=== PATIENT | male | born 1965 | race Caucasian/White ===

== ENCOUNTER → 2023-10-18 | Outpatient (CLI) | payer SELFPAY, OTHER ==
[2023-10-18] MEDS: Methacholine Chloride 18 ml neb kit INHALATION (07:06)
[2023-10-18 08:01] VITALS: PULSE 64; PULSE 74; PULSE 77; PULSE 78; PULSE 80; O2SAT 95; O2SAT 96; O2SAT 97
--- NOTE | 2023-10-19 11:00 | PCM.PSN.6M ---
PSN 6 Minute Walk Test 6 Minute Walk Test 6 Minute Walk Test: 6 Minute Walk Test PSN:6-Minute Walk Test Start: 10/18/23 07:38 Freq: Status: Active Protocol: [id number].[id number] Document 10/18/23 08:01 DEVON (Rec: 10/18/23 08:03 DEVON [id number]) 6 Minute Walk Test Date Performed 10/18/23 Time Performed 08:00 Height 5 ft 9.5 in Weight: 210 lb Weight in Pounds 210.[address]: Sekou Lara Assistive device used: None Pre-test Oxygen Delivery Method Room Air Pulse Ox 95 Pulse Rate (60-100) 74 Dyspnea Sohan Scale (0-10) 0 Exertion Sohan Scale (6-20) 6 1st minute Oxygen Delivery Method Room Air Pulse Ox 97 Pulse Rate (60-100) 78 2nd minute Oxygen Delivery Method Room Air Pulse Ox 96 Pulse Rate (60-100) 80 3rd minute Oxygen Delivery Method Room Air Pulse Ox 97 Pulse Rate (60-100) 80 4th minute Oxygen Delivery Method Room Air Pulse Ox 97 Pulse Rate (60-100) 78 5th minute Oxygen Delivery Method Room Air Pulse Ox 97 Pulse Rate (60-100) 77 6th minute Oxygen Delivery Method Room Air Pulse Ox 97 Pulse Rate (60-100) 80 Dyspnea Sohan Scale (0-10) 4 Exertion Sohan Scale (6-20) 13 Post-test Oxygen Delivery Method Room Air Pulse Ox 97 Pulse Rate (60-100) 64 Full Laps Walked 22 Partial Lap, Number of Tiles Walked 32 Total Distance Walked (ft) 1330 Interpretation Interpretation: The patient ambulated 1330 feet over the course of 6 minutes beginning on room air without assistive devices. Pretesting oxygen saturation was noted to be 95% on room air. With ambulation, the jake oxygen saturation was 96%. There was no significant exertional oxygen desaturation. Recommendations Recommendations: There is no indication for the use of supplemental oxygen at this time.
== END | disposition home or self-care (01) ==
PROVIDERS: PCP Family Medicine; Referring Provider Internal Medicine Critical Care Medicine; Visit Provider Internal Medicine Critical Care Medicine
DX: R06.09 Other forms of dyspnea (principal)
CPT/HCPCS: 94070; 94618; 95070